=== PATIENT | female | born 1980 | race Two or more races ===

== ENCOUNTER 2017-09-23 12:49 | Emergency (ER) | payer OTHER ==
[~2017-09-23] VITALS: Ht 190.5 cm; Wt 127.5 kg
--- OUTSIDE RECORDS SUMMARY | ~2017-09-23 | XMS | Clinical Summary ---
Demographics + + + | Address | [address] | | | [place] [address] | + + + | Home Phone | | + + + | Preferred Language | Unknown | + + + | Marital Status | | + + + | Mandaeism Affiliation | NRP | + + + | Race | White | + + + | Ethnic Group | Not or | + + + Author + + + | Author | [facility] | + + + | Organization | [facility] | + + + | Address | Unknown | + + + | Phone | Unavailable | + + + Support + + +---------+ + | Name | Relationship | Address | Phone | + + +---------+ + | Raman Rivera | ECON | Unknown | | + + +---------+ + Care Team Providers + +------+ + | Care Cherry Pitter Name | Role | Phone | + +------+ + | Mike Ely MD | PP | | + +------+ + Source Comments MARYLU is fully live on both [facility] Ambulatory and [facility] InPatient.[facility] Allergies + + + + + + | Active Allergy | Reactions | Severity | Noted | Comments | | | | | Date | | + + + + + + | Onabotulinumtoxina | Myalgia, Nausea and | | 10/10/19 | | | | Vomiting | | 17 | | + + + + + + | Oxycodone-Acetaminop | Headache, Hives, | | 08/01/19 | sweating | | hen | Pruritus | | 13 | | + + + + + + Current Medications + + + +---------+------+------+-------+ | Prescription | Sig. | Disp. | Refills | Star | End | Statu | | | | | | t | Date | s | | | | | | Date | | | + + + +---------+------+------+-------+ | cyanocobalamin | Take 1 Tab by mouth | 100 Tab | 12 | 11/23 | | Activ | | (VITAMIN B-12) 500 | once daily. | | | 08/14 | | e | | mcg Oral tablet | | | | 13 | | | + + + +---------+------+------+-------+ | FLUoxetine 60 mg | | | | 03/0 | | Activ | | oral tablet | | | | 10/12 | | e | | | | | | 17 | | | + + + +---------+------+------+-------+ | ergocalciferol | Take 50,000 Units by | | | 03/2 | | Activ | | 50,000 unit oral | mouth every seven | | | 5/20 | | e | | capsule | days. | | | 17 | | | + + + +---------+------+------+-------+ | fluticasone 50 | Instill 2 sprays | 1 each | 0 | 04/2 | | Activ | | mcg/actuation nasal | into each nostril | | | 5/20 | | e | | spray,suspension | once daily. | | | 17 | | | + + + +---------+------+------+-------+ | prochlorperazine | Take 1 tablet by | 30 | 0 | 04/2 | | Activ | | 10 mg oral tablet | mouth three times | tablet | | 5/20 | | e | | | daily as needed for | | | 17 | | | | | nausea/vomiting. Max | | | | | | | | dose: 40 mg/day | | | | | | + + + +---------+------+------+-------+ | | Take 1 tablet by | 30 | 0 | 04/2 | | Activ | | HYDROcodone-acetamin | mouth every six | tablet | | 5/20 | | e | | ophen 5-325 mg oral | hours as needed for | | | 17 | | | | tabletIndications: | severe pain (not | | | | | | | Pain | controlled by | | | | | | | | ibuprofen). | | | | | | | | Indications: Pain | | | | | | + + + +---------+------+------+-------+ | ondansetron | Take 1 tablet by | 30 | 0 | 04/2 | | Activ | | (ZOFRAN, | mouth every twelve | tablet | | 5/20 | | e | | HYDROCHLORIDE,) 4 mg | hours as needed for | | | 17 | | | | oral tablet | nausea/vomiting. | | | | | | + + + +---------+------+------+-------+ | potassium chloride | | | 1 | 03/0 | | Activ | | SR 20 mEq oral | | | | 2/20 | | e | | tablet,ER | | | | 17 | | | | particles/crystals | | | | | | | + + + +---------+------+------+-------+ | ALPRAZolam 0.25 mg | | | 3 | 07/26 | | Activ | | oral tablet | | | | 12/12 | | e | | | | | | 17 | | | + + + +---------+------+------+-------+ Active Problems + + + | Problem | Noted Date | + + + | Chronic pelvic pain in female | 10/17/2016 | + + + | Blood in stool | 10/17/2016 | + + + | Chronic diarrhea | 10/17/2016 | + + + | Morbid obesity (HCC) | 08/01/2012 | + + + | GERD (gastroesophageal reflux disease) | 08/01/2012 | + + + | Hip pain | 08/01/2012 | + + + | Depression | 08/01/2012 | + + + | Anxiety | 08/01/2012 | + + + Family History + + +------+ + | Medical History | Relation | Name | Comments | + + +------+ + | Cancer | Maternal | | ovarian (early 40s), breast, and later | | | Aunt | | pancreatic cancer, now in hospice at age 52 | + + +------+ + | Cancer | Maternal | | uterine cancer | | | Grandmoth | | | | | er | | | + + +------+ + | Cancer | Mother | | cervical dysplasia type 2, fibroids | + + +------+ + | Heart Disease | Mother | | | + + +------+ + | Other | Sister | | PCOS, endometriosis | + + +------+ + + +------+ + + | Relation | Name | Status | Comments | + +------+ + + | Child | | Alive | | + +------+ + + | Child | | Alive | | + +------+ + + | Child | | Alive | | + +------+ + + | Child | | Alive | | + +------+ + + | Father | | Alive | | + +------+ + + | Maternal Aunt | | | | + +------+ + + | Maternal Grandmother | | | | + +------+ + + | Mother | | | | + +------+ + + | Sister | | | | + +------+ + + Social History + + + +--------+ + | Tobacco Use | Types | Packs/Day | Years | Date | | | | | Used | | + + + +--------+ + | Current Every Day | Cigarettes | 0.3 | 1.5 | Quit: 06/25/2008 | | Smoker | | | | | + + + +--------+ + + +---+---+---+ | Smokeless Tobacco: | | | | | Never Used | | | | + +---+---+---+ + + +---------+ + | Alcohol Use | Drinks/We | oz/Week | Comments | | | ek | | | + + +---------+ + | No | | | | + + +---------+ + + + + | Sex Assigned at | Date Recorded | | | | + + + | Not on file | | + + + Last Filed Vital Signs + + + + | Vital Sign | Reading | Time Taken | + + + + | Blood Pressure | 142/84 | 10/17/2016 3:39 PM PDT | + + + + | Pulse | 82 | 10/17/2016 3:39 PM PDT | + + + + | Temperature | 36.5 C (97.7 F) | 10/17/2016 3:39 PM PDT | + + + + | Respiratory Rate | 23 | 10/09/2016 4:15 PM PDT | + + + + | Oxygen Saturation | 98% | 10/17/2016 3:39 PM PDT | + + + + | Inhaled Oxygen | - | - | | Concentration | | | + + + + | Weight | 128.8 kg (284 lb) | 10/17/2016 3:39 PM PDT | + + + + | Height | 190.5 cm (6' 3") | 10/17/2016 3:39 PM PDT | + + + + | Body Mass Index | 35.5 | 10/17/2016 3:39 PM PDT | + + + + Plan of Treatment + + + + + | Health Maintenance | Due Date | Last Done | Comments | + + + + + | INFLUENZA VACCINE | | | | | (FLU SHOT) | 8 | | | + + + + + Results Not on filefrom Last 3 Months
--- OUTSIDE RECORDS SUMMARY | ~2017-09-23 | XMS | Clinical Summary ---
Demographics + + + | Address | [address] | | | [place] [address] | + + + | Home Phone | | + + + | Preferred Language | Unknown | + + + | Marital Status | | + + + | Yazidism Affiliation | NRP | + + + [...] Team Providers + +------+ + | Care Veterans Rehabilitation Counselor Name | Role | Phone | + +------+ + | Mike Ely MD | PP | | + +------+ + Source Comments MARYLU is fully live on both [facility] Ambulatory and [facility] InPatient.[facility] Allergies + + + + + + [...]
[~2017-09-23 12:49] MED LIST: ALPRAZOLAM0.25 MG PO; BUTALB-ACETAMI1 EAC2 PO; CHLORPROMAZINE25 MG PO; FLUOXETINE HCL20 MG PO; FLUOXETINE HCL60 MG PO; HYDROCODONE-IB1 EACH; IMITREX100 MG PO; IMODIUM A-D2 M2 PO; KLONOPIN2 MG; METFORMIN HCL1000 MG PO; METOPROLOL SUCC25 MG PO; MYRBETRIQ25 MG PO; NORCO 5-325 TA1 EACH PO; PHENTERMINE H37.5 MG PO; PROCHLORPERAZIN10 MG PO; TORSEMIDE10 MG PO; VITAMIN D250000 UNIT PO
--- NOTE | 2017-09-24 20:33 | EKG ---
[facility] [address] [facility] [place] [address] Signed Normal sinus rhythm Non-specific change in ST segment in V1 to V2 Abnormal ECG When compared with ECG of 23-AUG-2016 10:14, Nonspecific T wave abnormality now evident in Anterior leads Confirmed by LUCAS BURTON MD ([id number]) on 09/24/2017 8:33:39 PM Electronically Signed By: LUCAS BURTON MD 09/24/17 2033 PATIENT NAME: FOREIGN LONG Electrocardiogram DATE OF : 80 PHYSICIAN: LUCAS BURTON MD REPORT #: [id number] REPORT IS CONFIDENTIAL AND NOT TO BE RELEASED WITHOUT AUTHORIZATION
== END 2017-09-23 23:08 | disposition home or self-care (01) ==
LOC: ED 12:49
DX: T14.91XA Suicide attempt, initial encounter (principal); T42.4X2A Poisoning by benzodiazepines, intentional self-harm, initial encounter; T42.8X2A Poisoning by antiparkinsonism drugs and other central muscle-tone depressants, intentional self-harm, initial encounter; S63.91XA Sprain of unspecified part of right wrist and hand, initial encounter; S13.9XXA Sprain of joints and ligaments of unspecified parts of neck, initial encounter; X50.9XXA Other and unspecified overexertion or strenuous movements or postures, initial encounter; G43.909 Migraine, unspecified, not intractable, without status migrainosus; F41.9 Anxiety disorder, unspecified; F32.9 Major depressive disorder, single episode, unspecified; F17.200 Nicotine dependence, unspecified, uncomplicated; Z85.43 Personal history of malignant neoplasm of ovary; Z88.5 Allergy status to narcotic agent; Z88.8 Allergy status to other drugs, medicaments and biological substances; Z79.899 Other long term (current) drug therapy
CPT/HCPCS: 72040; 73130; 80053; 80176; 81001; 83735; 84443; 84703; 85025; 93005; 93010; 96372; 99283; G0480; J3030

== ENCOUNTER 2017-10-25 08:54 | Emergency (ER) | payer OTHER ==
[~2017-10-25] VITALS: Ht 190.5 cm; Wt 128.8 kg
== END 2017-10-25 09:32 | disposition home or self-care (01) ==
LOC: ED 08:54
DX: Z00.8 Encounter for other general examination (principal)

== ENCOUNTER → 2017-11-03 | Emergency (ER) | payer OTHER ==
[~2017-11-03] VITALS: Ht 190.5 cm; Wt 128.8 kg
[~2017-11-03] MED LIST changes: +ALPRAZOLAM0.5 MG PO; +CIPRO500 MG PO; +FLAGYL500 MG PO; +HYDROCODON-ACE1 EAC8 PO; +K-TAB ER20 MEQ PO; +ONDANSETRON ODT8 MG PO
== END ==
LOC: ED 21:11
DX: R51 Headache (principal); R10.9 Unspecified abdominal pain; G89.29 Other chronic pain; F17.200 Nicotine dependence, unspecified, uncomplicated; Z88.5 Allergy status to narcotic agent; Z88.8 Allergy status to other drugs, medicaments and biological substances; Z79.899 Other long term (current) drug therapy; Z90.710 Acquired absence of both cervix and uterus
CPT/HCPCS: 74177; 80053; 81001; 83690; 85025; 96361; 96374; 96375; 99284; J1200; J1885; J2765; J7030; Q9967

== ENCOUNTER 2017-11-20 12:20 | Emergency (ER) | payer OTHER ==
[~2017-11-20] VITALS: Ht 190.5 cm; Wt 128.8 kg
[~2017-11-20 12:20] MED LIST changes: -ALPRAZOLAM0.5 MG PO; -CIPRO500 MG PO; -FLAGYL500 MG PO; -HYDROCODON-ACE1 EAC8 PO; -K-TAB ER20 MEQ PO; -ONDANSETRON ODT8 MG PO
[2017-11-20] MEDS ORDERED: FLAGYL500 MG PO (12:38)
[2017-11-20] MEDS ORDERED: CIPRO500 MG PO (12:38)
== END 2017-11-20 16:19 | disposition home or self-care (01) ==
LOC: ED 12:20
DX: R10.32 Left lower quadrant pain (principal); F17.200 Nicotine dependence, unspecified, uncomplicated; Z88.5 Allergy status to narcotic agent; Z88.8 Allergy status to other drugs, medicaments and biological substances
CPT/HCPCS: 76830; 76856; 80053; 81001; 83690; 85025; 85610; 85730; 96361; 96374; 96375; 99284; J2405; J3010; J7030

== ENCOUNTER 2017-12-04 01:36 | Emergency (ER) | payer OTHER ==
[~2017-12-04] VITALS: Ht 190.5 cm; Wt 122.5 kg
[~2017-12-04 01:36] MED LIST changes: +CIPRO500 MG PO; +FLAGYL500 MG PO
[2017-12-04] MEDS ORDERED: HYDROCODON-ACE1 EAC8 PO (01:51)
[2017-12-04] MEDS ORDERED: ALPRAZOLAM0.5 MG PO (01:51)
[2017-12-04] MEDS ORDERED: CIPRO500 MG PO (01:52)
[2017-12-04] MEDS ORDERED: ONDANSETRON ODT8 MG PO (01:52)
[2017-12-04] MEDS ORDERED: FLAGYL500 MG PO (01:53)
[2017-12-04] MEDS ORDERED: K-TAB ER20 MEQ PO (01:54)
== END 2017-12-04 04:11 | disposition home or self-care (01) ==
LOC: ED 01:36
DX: R10.9 Unspecified abdominal pain (principal); N83.202 Unspecified ovarian cyst, left side; F32.9 Major depressive disorder, single episode, unspecified; F41.9 Anxiety disorder, unspecified; F17.200 Nicotine dependence, unspecified, uncomplicated; Z88.5 Allergy status to narcotic agent; Z88.8 Allergy status to other drugs, medicaments and biological substances; Z79.899 Other long term (current) drug therapy
CPT/HCPCS: 80053; 83690; 84703; 85025; 96361; 96374; 96375; 99283; J1170; J1200; J2405; J2765; J7030

== ENCOUNTER 2021-11-30 02:22 | Emergency (ER) | payer MEDICAID ==
[~2021-11-30] VITALS: Ht 190.5 cm; Wt 117.9 kg
--- NOTE | ~2021-11-30 | EKG ---
[facility] [address] [facility] [place], [place] [address] Draft EK completed, results pending confirmation PATIENT NAME: FOREIGN LONG Electrocardiogram DATE OF : 80 PHYSICIAN: PRELIMINARY REPORT #: [id number] REPORT IS CONFIDENTIAL AND NOT TO BE RELEASED WITHOUT AUTHORIZATION
[~2021-11-30 02:22] MED LIST changes: +ALPRAZOLAM0.5 MG PO; +HYDROCODON-ACE1 EAC8 PO; +K-TAB ER20 MEQ PO; +ONDANSETRON ODT8 MG PO
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
[2021-11-30] MEDS ORDERED: QUETIAPINE FUM100 MG PO (02:36)
[2021-11-30] MEDS ORDERED: HYDROXYZINE HCL25 MG PO (03:34)
[2021-11-30] MEDS ORDERED: VENTOLIN HFA18 GM INH (03:46)
[2021-11-30] MEDS ORDERED: ZYRTEC10 MG PO (03:47)
[2021-11-30] MEDS ORDERED: STRATTERA80 MG PO (03:47)
[2021-11-30] MEDS ORDERED: VALIUM5 MG PO (03:48)
[2021-11-30] MEDS ORDERED: PEPCID20 MG PO (03:49)
[2021-11-30] MEDS ORDERED: PROTONIX40 MG PO (03:49)
[2021-11-30] MEDS ORDERED: PROCHLORPERAZIN10 MG PO (03:50)
[2021-11-30] MEDS ORDERED: SEROQUEL100 MG PO (03:51)
[2021-11-30] MEDS ORDERED: IMITREX50 MG PO (03:51)
== END 2021-11-30 04:07 | disposition home or self-care (01) ==
LOC: ED 02:22
DX: R07.89 Other chest pain (principal); F41.0 Panic disorder [episodic paroxysmal anxiety]; G43.909 Migraine, unspecified, not intractable, without status migrainosus; Z85.43 Personal history of malignant neoplasm of ovary; I25.10 Atherosclerotic heart disease of native coronary artery without angina pectoris; Z87.891 Personal history of nicotine dependence; Z88.5 Allergy status to narcotic agent; Z88.8 Allergy status to other drugs, medicaments and biological substances; Z79.899 Other long term (current) drug therapy
CPT/HCPCS: 36415; 71045; 80053; 84484; 85025; 85610; 93005; 93010; 96374; 99285-25; J2060